=== PATIENT | female | born 1960 | race Caucasian/White ===

== ENCOUNTER 2022-03-11 10:20 | Day surgery (SDC) | payer OTHER ==
[2022-03-08 12:06] VITALS: BMI 36.6
[~2022-03-11 10:20] MED LIST: LACTATED RINGERS 1,000 ML IV SCH; LIDOCAINE 1% (10MG/ML) FOR IV START INTRADERMA PRN
[2022-03-11 10:45] VITALS: TEMP 96.7
[2022-03-11] MEDS ORDERED: LIDOCAINE 2% INJ 20 MG/ML (2 ML VIAL) ONE (11:53)
[2022-03-11] MEDS ORDERED: PROPOFOL 10 MG/ML 20 ML VIAL IV ONE (11:53)
--- NOTE | 2022-03-11 11:58 | P.GSHP ---
History of Present Illness H&P Date: 03/11/22 Chief Complaint: GERD This a 61-year-old female presents today for EGD. Patient's had issues with GERD. Past Medical History Past Medical History: GERD/Reflux, Hypertension Additional Past Medical History / Comment(s): hiatal hernia History of Any Multi-Drug Resistant Organisms: None Reported Past Surgical History: Cholecystectomy Additional Past Surgical History / Comment(s): tumor removed left kidney at age 18 Past Anesthesia/Blood Transfusion Reactions: No Reported Reaction Smoking Status: Current every day smoker - Past Family History Mother Family Medical History: Cancer Additional Family Medical History / Comment(s): uterine CA Medications and Allergies Home Medications Medication Instructions Recorded Confirmed Type Omeprazole 20 mg PO BID 03/08/22 03/08/22 History Triamterene/Hydrochlorothiazid 1 each PO DAILY 03/08/22 03/08/22 History [Triamterene-Hctz 37.5-25 mg Cp] Vitamin E (Dl,Tocopheryl Acet) 180 mg PO DAILY 03/08/22 03/08/22 History [Vitamin E (100 Iu = 45MG)] amLODIPine [Norvasc] 5 mg PO HS 03/08/22 03/08/22 History Allergies Allergy/AdvReac Type Severity Reaction Status Date / Time No Known Allergies Allergy Verified 03/08/22 11:55 Surgical - Exam Vital Signs Temp Pulse Resp BP Pulse Ox 96.7 F L 96 16 150/81 100 03/11/22 10:44 03/11/22 10:44 03/11/22 10:44 03/11/22 10:44 03/11/22 10:44 - General well developed, well nourished, no distress - Eyes PERRL - ENT normal pinna - Neck no masses - Respiratory normal expansion - Cardiovascular Rhythm: regular - Abdomen Abdomen: soft, non tender Assessment and Plan Assessment: GERD. We'll perform EGD.
--- NOTE | 2022-03-11 12:06 | P.OP ---
Date of Procedure: 03/11/22 Preoperative Diagnosis: GERD Postoperative Diagnosis: GERD Large paraesophageal hiatal hernia Esophagitis Procedure(s) Performed: EGD Anesthesia: MAC Surgeon: Vivek Oneal Pathology: other (Esophagus) Condition: stable Disposition: PACU Description of Procedure: The patient's placed on the endoscopy table in the lateral position. She received IV sedation. The gastroscope placed oropharynx passed in the esophagus stomach. Scope was placed through the pylorus. First and second portion of duodenum appeared normal. Scope summer back the stomach antrum appeared normal. Scope was then retroflexed there was a large paraesophageal hernia. The GE junction was at 36 cm. The distal esophagus. Inflamed a biopsies performed. The proximal esophagus appeared normal. Scope withdrawn for patient.
[2022-03-11 12:38] VITALS: BP 100/60; PULSE 89; RESP 16
== END 2022-03-11 13:14 | disposition home or self-care (01) ==
LOC: ORWHC2ENDO 10:20
PROVIDERS: ATTEND Surgery
DX: K21.00 Gastro-esophageal reflux disease with esophagitis, without bleeding (principal); K44.9 Diaphragmatic hernia without obstruction or gangrene; I10 Essential (primary) hypertension; F17.210 Nicotine dependence, cigarettes, uncomplicated; Z90.49 Acquired absence of other specified parts of digestive tract; Z80.49 Family history of malignant neoplasm of other genital organs; Z79.899 Other long term (current) drug therapy
CPT/HCPCS: 43239; J2704; J2001; 88305; 88312

== ENCOUNTER → 2022-03-21 | Outpatient (CLI) | payer OTHER ==
[2022-03-21 20:32] LABS: Basophils # (A) 0.03 X 10*3/uL (0.00-0.10); Basophils % (A) 0.5 %; Eosinophils # (A) 0.33 X 10*3/uL (0.04-0.35); Eosinophils % (A) 5.5 %; HCT 40.5 % (37.2-46.3); HGB 12.8 g/dL (12.0-15.0); Immature Grans, Automated 0.3 %; Lymphocytes # (A) 1.58 X 10*3/uL (0.90-5.00); Lymphocytes % (A) 26.5 %; MCH 26.8 pg (27.0-32.0); MCHC 31.6 g/dL (32.0-37.0); MCV 84.9 fL (80.0-97.0); Mean Platelet Volume 13.3 fL (9.5-12.2); Monocytes # (A) 0.45 X 10*3/uL (0.20-1.00); Monocytes % (A) 7.6 %; NRBC Per 100 WBC 0 /100 WBCS (0.0-0.0); Neutrophils # (A) 3.55 X 10*3/uL (1.80-7.70); Neutrophils % (A) 59.6 %; Platelet Count 220 X 10*3/uL (140-440); RBC 4.77 X 10*6/uL (4.10-5.20); RDW 14.5 % (11.5-14.5); WBC 5.96 X 10*3/uL (4.50-10.00)
== END | disposition home or self-care (01) ==
LOC: LABPAT 14:18
PROVIDERS: ATTEND Surgery
DX: Z01.812 Encounter for preprocedural laboratory examination (principal); K21.00 Gastro-esophageal reflux disease with esophagitis, without bleeding
CPT/HCPCS: 85025

== ENCOUNTER 2022-04-01 08:53 | Observation (INO) | payer OTHER ==
[~2022-04-01 08:53] MED LIST changes: +ACETAMINOPHEN TAB 500 MG TAB PO PRN; +HEPARIN SODIUM,PORCINE/PF 5,000 UNIT/0.5 ML SYRINGE SQ PRN; -LACTATED RINGERS 1,000 ML IV SCH; -LIDOCAINE 1% (10MG/ML) FOR IV START INTRADERMA PRN
[2022-04-01] MEDS ORDERED: ONDANSETRON 4 MG/2 ML VIAL ONE (09:26)
[2022-04-01] MEDS ORDERED: LIDOCAINE 1% (10MG/ML) FOR IV START INTRADERMA ONE (09:35)
[2022-04-01] MEDS ORDERED: LACTATED RINGERS 1,000 ML IV ONE ×3 (09:35→13:45)
[2022-04-01] MEDS ORDERED: DEXAMETHASONE SOD PHOSPHATE 4 MG/ML 1 ML VIAL IV ONE (09:45)
[2022-04-01] MEDS ORDERED: LIDOCAINE 2% INJ 20 MG/ML (2 ML VIAL) ONE (10:15)
[2022-04-01] MEDS ORDERED: GLYCOPYRROLATE 0.2 MG/ML 2 ML VIAL ONE (10:15)
[2022-04-01] MEDS ORDERED: NEOSTIGMINE 1 MG/ML 10 ML VIAL ONE (10:15)
[2022-04-01] MEDS ORDERED: PROPOFOL 10 MG/ML 20 ML VIAL IV ONE (10:15)
[2022-04-01] MEDS ORDERED: SUCCINYLCHOLINE CHLORIDE 200 MG/10 ML VIAL IV ONE (10:15)
[2022-04-01] MEDS ORDERED: MIDAZOLAM 2 MG/2 ML VIAL ONE (10:15)
[2022-04-01] MEDS ORDERED: fentaNYL (PF) 50 MCG/ML 2 ML AMP ONE (10:15)
[2022-04-01] MEDS ORDERED: ROCURONIUM 10 MG/ML (5 ML VIAL) IV ONE (10:15)
[2022-04-01] MEDS ORDERED: HYDROmorphone (PF) 1 MG/ML ONE (10:15)
[2022-04-01 10:48] LABS: Potassium 3.6 mmol/L (3.5-5.1)
[2022-04-01] MEDS ORDERED: BUPIVACAINE (PF) 0.5% 30 ML VIAL SQ ONE (10:59)
--- NOTE | 2022-04-01 12:04 | P.GSHP ---
History of Present Illness H&P Date: 04/01/22 Chief Complaint: GERD Is a 61-year-old female who has history of large paraesophageal hernia. Patient presents today for laparoscopic repair. Patient's is. History of exploratory laparotomy for kidney surgery. Patient is a midline scar. She is aware the risk of adhesions. Past Medical History Past Medical History: GERD/Reflux, Hypertension Additional Past Medical History / Comment(s): hiatal hernia History of Any Multi-Drug Resistant Organisms: None Reported Past Surgical History: Cholecystectomy Additional Past Surgical History / Comment(s): tumor removed left kidney at age 18, EGD Past Anesthesia/Blood Transfusion Reactions: No Reported Reaction Past Psychological History: No Psychological Hx Reported Smoking Status: Current every day smoker Past Alcohol Use History: None Reported Additional Past Alcohol Use History / Comment(s): started smoking age 22s, <1ppd Past Drug Use History: None Reported - Past Family History Mother Family Medical History: Cancer Additional Family Medical History / Comment(s): uterine CA Medications and Allergies Home Medications Medication Instructions Recorded Confirmed Type Omeprazole 20 mg PO BID 03/08/22 03/29/22 History Triamterene/Hydrochlorothiazid 1 each PO DAILY 03/08/22 03/29/22 History [Triamterene-Hctz 37.5-25 mg Cp] Vitamin E (Dl,Tocopheryl Acet) 180 mg PO DAILY 03/08/22 03/29/22 History [Vitamin E (100 Iu = 45MG)] amLODIPine [Norvasc] 5 mg PO HS 03/08/22 03/29/22 History Allergies Allergy/AdvReac Type Severity Reaction Status Date / Time No Known Allergies Allergy Verified 04/01/22 09:10 Surgical - Exam Vital Signs Temp Pulse Resp BP Pulse Ox 98.0 F 92 16 133/71 98 04/01/22 09:15 04/01/22 09:15 04/01/22 09:15 04/01/22 09:15 04/01/22 09:15 - General well developed, well nourished, no distress - Eyes PERRL - ENT normal pinna - Neck no masses - Respiratory normal expansion - Cardiovascular Rhythm: regular - Abdomen Well-healed midline scar Abdomen: soft, non tender Results - Labs 04/01/22 09:35 Diabetes panel 04/01/22 Range/Units 09:35 Sodium 139 (137-145) mmol/L Potassium 3.6 (3.5-5.1) mmol/L Chloride 103 (98-107) mmol/L Carbon Dioxide 25 (22-30) mmol/L Pituitary panel 04/01/22 Range/Units 09:35 Sodium 139 (137-145) mmol/L Potassium 3.6 (3.5-5.1) mmol/L Chloride 103 (98-107) mmol/L Carbon Dioxide 25 (22-30) mmol/L Adrenal panel 04/01/22 Range/Units 09:35 Sodium 139 (137-145) mmol/L Potassium 3.6 (3.5-5.1) mmol/L Chloride 103 (98-107) mmol/L Carbon Dioxide 25 (22-30) mmol/L Assessment and Plan Assessment: Large paraesophageal hernia. Patient will undergo laparoscopic repair. Patient with a risk of conversion to open procedure for adhesions.
--- NOTE | 2022-04-01 12:05 | P.OP ---
Date of Procedure: 04/01/22 Preoperative Diagnosis: Paraesophageal hernia Postoperative Diagnosis: GERD Paraesophageal hernia Adhesions Procedure(s) Performed: Laparoscopic Dione fundoplication Anesthesia: МАРИНА Surgeon: Vivek Oneal Pathology: none sent Condition: stable Disposition: PACU Description of Procedure: HThe patient was placed on the operating table in the supine position. The patient received general anesthesia. And was placed in dorsal lithotomy position. The patient was prepped and draped in the usual sterile fashion. The skin incision sites were anesthetized with 1% local Xylocaine. The skin was incised in the left periumbilical area and then using a blade less 5 mm trocar under direct visualization panel cavity was entered. After adequate insufflation the laparoscope was then placed into the peritoneal cavity. There were adhesions noted throughout the peritoneal cavity. Care was taken to avoid areas of adhesion. Next a 5 mm trochars placed in the right epigastric position. Another 5 millimeter trocar the right lateral position. Another 5 millimeter trocar in the left lateral position a 5 mm trocar is placed in the left epigastric position. And then the initial 5 mm trocar was exchanged for a 10 mm trocar. The left lateral lobe liver was retracted. The hernia was seen. The crural defect was then dissected using the Harmonic scissors device. A 360 crural dissection was performed the esophagus stomach was reduced back into the peritoneal Cavity. The crural defect was then closed using 2-0 Ethibond suture. Next the fundus of the stomach was mobilized using the [place] scissors device. and then a 58-[place] bougie dilator was placed oropharynx passed into the esophagus and stomach the fundal plication wrap was then performed by grasping the fundus posteriorly and bringing it around the esophagus and stomach fundoplication was then performed using 2-0 Ethibond suture. Care was taken that the fundal location rested over top of the intra-abdominal esophagus. There was no injury seen to the stomach or esophagus. The dilator was then withdrawn. The abdomen was irrigated there is no bleeding seen. The trochars were then withdrawn and then skin incision sites were closed using 3-0 Monocryl suture Steri-Strips are applied. Patient thought procedure well and sent to recovery room in stable condition.
[2022-04-01] MEDS ORDERED: HYDROmorphone 0.5 MG/0.5 ML SYRINGE IVP ONE ×2 (12:14→12:57)
[2022-04-01] MEDS ORDERED: HYDROmorphone 1 MG/ML 1 ML SYRINGE IVP ONE (12:57)
[2022-04-01] MEDS: D5-0.45% NACL WITH KCL 20MEQ/L 1,000 ML IV SCH ×2 (16:05→23:07)
[2022-04-01 19:33] LABS: African American GFR (CKD) >90 (>60 ml/min/1.73 sqM); Anion Gap 13 mmol/L; Blood Urea Nitrogen 20 mg/dL (7-17); Calcium 9.6 mg/dL (8.4-10.2); Carbon Dioxide 24 mmol/L (22-30); Chloride 102 mmol/L (98-107); Glucose 107 mg/dL (74-99); Non-African American GFR(CKD) 83 (>60 ml/min/1.73 sqM); Potassium 3.6 mmol/L (3.5-5.1); Sodium 139 mmol/L (137-145)
[2022-04-01] MEDS: HYDROmorphone 1 MG/ML 1 ML SYRINGE IVP PRN (19:37)
[2022-04-02] MEDS: HYDROmorphone 1 MG/ML 1 ML SYRINGE IVP PRN ×3 (00:39→09:03)
[2022-04-02] MEDS ORDERED: ENOXAPARIN 40 MG/0.4 ML SYRINGE SQ SCH (09:00)
[2022-04-02] MEDS: D5-0.45% NACL WITH KCL 20MEQ/L 1,000 ML IV SCH ×2 (09:03→12:47)
[2022-04-02 10:16] LABS: Basophils # (A) 0.01 X 10*3/uL (0.00-0.10); Basophils % (A) 0.2 %; Eosinophils # (A) 0.03 X 10*3/uL (0.04-0.35); Eosinophils % (A) 0.5 %; HCT 34.8 % (37.2-46.3); HGB 10.9 g/dL (12.0-15.0); Immature Grans, Automated 0.2 %; Lymphocytes # (A) 1.14 X 10*3/uL (0.90-5.00); Lymphocytes % (A) 20.4 %; MCH 26.4 pg (27.0-32.0); MCHC 31.3 g/dL (32.0-37.0); MCV 84.3 fL (80.0-97.0); Mean Platelet Volume 12.7 fL (9.5-12.2); Monocytes # (A) 0.41 X 10*3/uL (0.20-1.00); Monocytes % (A) 7.3 %; NRBC Per 100 WBC 0 /100 WBCS (0.0-0.0); Neutrophils # (A) 3.99 X 10*3/uL (1.80-7.70); Neutrophils % (A) 71.4 %; Platelet Count 219 X 10*3/uL (140-440); RBC 4.13 X 10*6/uL (4.10-5.20); RDW 14.5 % (11.5-14.5); WBC 5.59 X 10*3/uL (4.50-10.00)
[2022-04-02] MEDS ORDERED: HYDROcodone/APAP 5-325MG 1 EACH TAB PO PRN (12:36)
--- NOTE | 2022-04-02 12:53 | P.DS ---
Providers Date of admission: 04/02/22 03:48 Expected date of discharge: 04/02/22 Attending physician: Vivek Oneal Consults: 04/01/22 11:35 Consult Physician Routine Consulting Provider: Barbara David Consult Reason/Comments: Medical management Do you want consulting provider notified?: Yes Primary care physician: Marques Daniels [facility] Course: Discharge diagnosis 1. Paraesophageal hernia, GERD and adhesions status post laparoscopic Dione fundoplication Hospital course This is a 61-year-old female with a large paraesophageal hernia. She is status post laparoscopic Dione fundoplication. She is tolerating diet. Her pain is controlled. She is ambulating. She is afebrile. She is stable for discharge. Please refer to chart for any further details. Physician Bow Repairer Custom note has been reviewed by physician. Signing provider agrees with the documented findings, assessment, and plan of care. Patient Condition at Discharge: Stable Plan - Discharge Summary Discharge Rx Participant: No New Discharge Prescriptions: New HYDROcodone/APAP 5-325MG [[place] 5-325] 1 tab PO Q6HR PRN 3 Days #12 tab PRN Reason: Pain Continue Triamterene/Hydrochlorothiazid [Triamterene-Hctz 37.5-25 mg Cp] 1 each PO DAILY amLODIPine [Norvasc] 5 mg PO HS Vitamin E (Dl,Tocopheryl Acet) [Vitamin E (100 Iu = 45MG)] 180 mg PO DAILY Omeprazole 20 mg PO BID Discharge Medication List Omeprazole 20 mg PO BID 03/08/22 [History] Triamterene/Hydrochlorothiazid [Triamterene-Hctz 37.5-25 mg Cp] 1 each PO DAILY 03/08/22 [History] Vitamin E (Dl,Tocopheryl Acet) [Vitamin E (100 Iu = 45MG)] 180 mg PO DAILY 03/08/22 [History] amLODIPine [Norvasc] 5 mg PO HS 03/08/22 [History] HYDROcodone/APAP 5-325MG [[place] 5-325] 1 tab PO Q6HR PRN 3 Days #12 tab 04/02/22 [Rx] Follow up Appointment(s)/Referral(s): Vivek Oneal MD [STAFF PHYSICIAN] - 1 Week Activity/Diet/Wound Care/Special Instructions: No driving while taking Charlotte No lifting over 10 pounds Shower daily. No soaking or tub baths for 2 weeks Very light activity until you are reevaluated at your follow up appointment with your surgeon Continue a full liquid/soft diet for the next 2 weeks No straws or carbonated beverages Resume blood pressure medications tomorrow. Hold BP meds for systolic blood pressure less than 120. Discharge Disposition: HOME SELF-CARE
[2022-04-02 14:00] VITALS: BMI 38.3
[2022-04-02 14:06] VITALS: BP 121/73; PULSE 52; RESP 18; TEMP 97.7
--- NOTE | 2022-04-02 15:18 | P.CONS ---
History of Present Illness - Reason for Consult Consult date: 04/02/22 Medical management postop Niesen fundoplication - History of Present Illness This is a 61-year-old female admitted under surgical services for paraesophageal hernia and is being closely monitored. Patient is postoperative laparoscopic Niesen fundoplication currently tolerating diet. Patient follows with Dr. Nguyễn in the outpatient setting for past medical history of gastroesophageal reflux disease, hypertension, hiatal hernia and patient reports she uses tobacco daily and occasionally drinks although denies any other illicit drug use. Patient is seen in follow-up this morning reports to tolerating liquid diet and has been up and walking and reports minimal gas with no bowel movement as of yet. Patient is voiding with no difficulties and denies chest pain and shortness of breath. Review Of Systems: Constitutional: No fever, no chills, no night sweats. No weight change. No weakness, fatigue or lethargy. No daytime sleepiness. EENT: No headache. No blurred vision or double vision, no loss of vision. No loss of Hearing, no ringing in the ears, no dizziness. No nasal drainage or congestion. No epistaxis. No sore throat. Lungs: No shortness of breath, cough, no sputum production. No wheezing. Cardiovascular: No chest pain, no lower extremity edema. No palpitations. No paroxysmal nocturnal dyspnea. No orthopnea. No lightheadedness or dizziness. No syncopal episodes. Abdominal: Mild abdominal pain. No nausea, vomiting. No diarrhea. No constipation. No bloody or tarry stools.. No loss of appetite. Reports belching and some minimal gas Genitourinary: No dysuria, increased frequency, urgency. No urinary retention. Musculoskeletal: No myalgias. No muscle weakness, no gait dysfunction, no frequent falls. No back pain. No neck pain. Integumentary: No wounds, no lesions. No rash or pruritus. No unusual bruising. No change in hair or nails. Neurologic: No aphasia. No facial droop. No change in mentation. No head injury. No headache. No paralysis. No paresthesia. Psychiatric: No depression. No anxiety. No mood swings. Endocrine: No abnormal blood sugars. No weight change. No excessive sweating or thirst. No cold intolerance. PHYSICAL EXAMINATION: GENERAL: The patient is alert and oriented x4, Well developed, well nourished. HEENT: Pupils are round and equally reacting to light. EOMI. no scleral icterus. No conjunctival pallor. Normocephalic, atraumatic. No pharyngeal erythema. No thyromegaly. CARDIOVASCULAR: S1 and S2 muffled PULMONARY: diminished breath sounds bilaterally with no wheezing or rhonchi noted. ABDOMEN: soft. mildly tender on exam. obese. non-distended, hypoactive bowel sounds. No palpable organomegaly. MUSCULOSKELETAL: No joint swelling or deformity. EXTREMITIES: No cyanosis, clubbing, or pedal edema. NEUROLOGICAL: Gross neurological examination did not reveal any focal deficits. SKIN: No rashes. Assessment: Large paraesophageal hernia status post laparoscopic Niesen fundoplication with lysis of adhesions Obesity with a BMI of 38.4 Continued ongoing nicotine dependence History of gastroesophageal reflux disease Hypertension History of hiatal hernia GI prophylaxis DVT prophylaxis Full code Plan: Recommend to continue with current medications and management per general surgery services. Patient is postop Niesen fundoplication with lysis of adhesions and tolerating oral intake with clear liquids patient has been up and walking tolerating oral intake reports to some belching and minimal gas with no bowel movement as of yet. Vital signs are stable and patient does take medications for blood pressure although currently normotensive and recommend holding blood pressure medications today and closely monitoring at home and may resume home medications if blood pressure rises . patient with an incentive spirometer at the bedside and encouraged to use at least 10 times every hour while awake and breathing home as well. Patient encouraged to follow-up with primary care provider along with surgery as scheduled. Tobacco cessation discussed and encouraged the patient to avoid tobacco use and exposure. We will continue to follow with surgery during hospitalization. Thank you kindly for this consultation. The impression and plan of care has been dictated by Mony Calvin, nurse practitioner as directed. Dr. Ervin MD I have performed a history and examination and MDM of this patient, discussed the same with the dictator, and agree with the dictator's assessment and plan as written ,documented as a scribe. Based on total visit time, I have performed more than 50% of the visit. Any additional findings or plans will be noted. Past Medical History Past Medical History: GERD/Reflux, Hypertension Additional Past Medical History / Comment(s): hiatal hernia History of Any Multi-Drug Resistant Organisms: None Reported Past Surgical History: Cholecystectomy Additional Past Surgical History / Comment(s): tumor removed left kidney at age 18, EGD Past Anesthesia/Blood Transfusion Reactions: No Reported Reaction Past Psychological History: No Psychological Hx Reported Smoking Status: Current every day smoker Past Alcohol Use History: None Reported Additional Past Alcohol Use History / Comment(s): started smoking age 22s, <1ppd Past Drug Use History: None Reported - Past Family History Mother Family Medical History: Cancer Additional Family Medical History / Comment(s): uterine CA Medications and Allergies Home Medications Medication Instructions Recorded Confirmed Type Omeprazole 20 mg PO BID 03/08/22 03/29/22 History Triamterene/Hydrochlorothiazid 1 each PO DAILY 03/08/22 03/29/22 History [Triamterene-Hctz 37.5-25 mg Cp] Vitamin E (Dl,Tocopheryl Acet) 180 mg PO DAILY 03/08/22 03/29/22 History [Vitamin E (100 Iu = 45MG)] amLODIPine [Norvasc] 5 mg PO HS 03/08/22 03/29/22 History HYDROcodone/APAP 5-325MG [[place] 1 tab PO Q6HR PRN 3 Days #12 tab 04/02/22 Rx 5-325] Allergies Allergy/AdvReac Type Severity Reaction Status Date / Time No Known Allergies Allergy Verified 04/01/22 09:10 Physical Exam Vitals: Vital Signs Temp Pulse Pulse Resp BP Pulse Ox 04/02/22 02:00 97.8 F 68 16 104/66 95 04/01/22 19:29 98.1 F 82 16 123/80 95 04/01/22 14:18 97.8 F 78 18 144/77 97 04/01/22 13:45 78 18 143/65 98 04/01/22 13:30 77 16 140/76 99 04/01/22 13:15 76 16 136/63 97 04/01/22 13:00 75 16 134/60 98 04/01/22 12:58 77 16 134/60 98 04/01/22 12:42 72 18 146/82 98 04/01/22 12:27 74 18 140/70 98 04/01/22 12:12 71 17 139/64 100 04/01/22 11:57 70 17 138/67 100 04/01/22 11:42 97.1 F L 74 16 127/60 99 Intake and Output 04/01/22 04/02/22 04/02/22 22:59 06:59 14:59 Intake Total 1375 Balance 1375 Intake: IV 1375 D5-0.45% NaCl with KCl 1375 20Meq/l 1,000 ml @ 125 mls/hr IV .Q8H [facility] Rx#: [id number] Other: Voiding Method Toilet # Voids 1 2 Results CBC & Chem 7: 04/02/22 06:34 04/01/22 09:35 Labs: Abnormal Lab Results - Last 24 Hours (Table) 04/01/22 Range/Units 09:35 BUN 20 H (7-17) mg/dL Glucose 107 H (74-99) mg/dL
== END 2022-04-02 14:09 | disposition home or self-care (01) ==
LOC: OR 08:53 → 5NMEDONC 11:40 → OR 04-02 02:13 → 5NMEDONC 04-02 03:48
PROVIDERS: ADMIT Surgery; ATTEND Surgery
DX: K44.9 Diaphragmatic hernia without obstruction or gangrene (principal); K21.9 Gastro-esophageal reflux disease without esophagitis; K66.0 Peritoneal adhesions (postprocedural) (postinfection); I10 Essential (primary) hypertension; F17.200 Nicotine dependence, unspecified, uncomplicated; E66.9 Obesity, unspecified; Z68.38 Body mass index [BMI] 38.0-38.9, adult; Z79.899 Other long term (current) drug therapy
CPT/HCPCS: 80051; 80048; 85025; 43280; G0378; J2250; J0330; J1100; J2710; J0690; J2405; J1650; J3010; J1170 ×3; J2704; J1644; J2001

== ENCOUNTER → 2024-09-28 | Outpatient (CLI) | payer OTHER ==
--- NOTE | 2024-09-29 06:39 | FL ---
EXAMINATION TYPE: FL UGI w esophagus w KUB DATE OF EXAM: 09/28/2024 LIMITED UGI-ESOPHAGRAM: CLINICAL HISTORY: Severe dysphagia for last 2 months, feels food is getting stuck, history of hiatal hernia repair surgery 2.5 years ago. TECHNIQUE: Esophagram is performed utilizing thin liquid barium. A total of 85 seconds of fluoroscopi c time was utilized during procedure and 81 images obtained. TOTAL DAP = 2857.97. FINDINGS: Preprocedure project designer image shows cholecystectomy clips and overall nonobstructive bowel gas p attern. Moderate colonic fecal prominence. The patient swallowed contrast without difficulty or delay. Esophageal peristalsis and motility are within normal limits. There is pooling of contrast in dilated distal esophagus with delayed passage into the stomach over a short segment just above the diaphragm. The situs small surgical clips. There is no extravasation of contrast to suggest leak. A 10 minute delayed image shows progression of cont rast through the duodenal sweep into proximal jejunal loops with some retained contrast in the distal esophagus. There is tiny outpouchings or ulceration in the distal esophagus before the level of sign ificant narrowing IMPRESSION: Moderate to severe obstruction in the distal esophagus at level of diaphragmatic hiatus. Severe narrowing and Mucosal irregularity is seen. Findings could reflect products of severe inflamma tory change, neoplastic process is not entirely excluded. Further investigation with direct visualiza tion is advised. [facility], , 09/29/2024 6:36 AM
== END | disposition home or self-care (01) ==
LOC: RADFLMAIN 09:21
PROVIDERS: ATTEND Surgery
DX: K22.2 Esophageal obstruction (principal); R13.10 Dysphagia, unspecified
CPT/HCPCS: 74240

== ENCOUNTER 2024-09-30 07:45 | Day surgery (SDC) | payer OTHER ==
[2024-09-29 12:03] VITALS: BMI 37.8
[2024-09-30 08:05] VITALS: TEMP 97
[2024-09-30] MEDS: LACTATED RINGERS 1,000 ML IV SCH (08:05)
[2024-09-30] MEDS: IV FLUID CONTINUATION 1,000 ML IV ONE (08:05)
[2024-09-30] MEDS ORDERED: PROPOFOL 10 MG/ML 20 ML VIAL IV ONE (08:38)
--- NOTE | 2024-09-30 08:43 | P.GSHP ---
History of Present Illness H&P Date: 09/30/24 Chief Complaint: Dysphagia Is a 64-year-old female with complaints of dysphagia. Patient presents today for EGD. Her recent esophagram shows a possible stricture at the GE junction. Past Medical History Past Medical History: GERD/Reflux, Hypertension Additional Past Medical History / Comment(s): "When i don't eat sometimes it feels like it doesn't go down." hiatal hernia. History of Any Multi-Drug Resistant Organisms: None Reported Past Surgical History: Cholecystectomy Additional Past Surgical History / Comment(s): tumor removed left kidney at age 18, EGD. Bilat cataract surgery. Past Anesthesia/Blood Transfusion Reactions: No Reported Reaction Smoking Status: Current every day smoker - Past Family History Mother Family Medical History: Cancer Additional Family Medical History / Comment(s): uterine CA Medications and Allergies Home Medications Medication Instructions Recorded Confirmed Type Omeprazole 20 mg PO BID 03/08/22 09/30/24 History Triamterene/Hydrochlorothiazid 1 each PO QAM 03/08/22 09/30/24 History [Triamterene-Hctz 37.5-25 mg Cp] amLODIPine [Norvasc] 5 mg PO HS 03/08/22 09/30/24 History Ibuprofen (Unknown Dose) 1 dose PO DIRECTED PRN 09/29/24 09/30/24 History Varenicline [Chantix Starter Pack] 0.5 mg PO BID 09/29/24 09/30/24 History Allergies Allergy/AdvReac Type Severity Reaction Status Date / Time No Known Allergies Allergy Verified 09/30/24 08:00 Surgical - Exam Vital Signs Temp Pulse Resp BP Pulse Ox 97.0 F L 86 16 126/72 97 09/30/24 08:03 09/30/24 08:03 09/30/24 08:03 09/30/24 08:03 09/30/24 08:03 - General well developed, well nourished, no distress - Eyes PERRL - ENT normal pinna - Neck no masses - Respiratory normal expansion - Cardiovascular Rhythm: regular - Abdomen Abdomen: soft, non tender Assessment and Plan Assessment: Dysphagia, 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 Will perform EGD with balloon dilatation.
--- NOTE | 2024-09-30 09:02 | P.OP ---
Date of Procedure: 09/30/24 Preoperative Diagnosis: Dysphagia Postoperative Diagnosis: Dysphagia GE junction stricture Procedure(s) Performed: EGD with balloon dilatation Anesthesia: MAC Surgeon: Vivek Oneal Condition: stable Disposition: PACU Description of Procedure: The patient was placed on the endoscopy table in the lateral position. She received IV sedation. Caden-Marcelle,Meenu Gastroflux oropharynx comparison to the esophagus. There was some vegetable matter seen in the distal esophagus. The fluid was aspirated. The col gastric was then placed into the stomach. And then through the pylorus. There was no evidence of any gastric obstruction. The scope was retroflexed the remainder of the stomach appeared normal. It was unclear if the fundoplication wrap had been displaced downward. There appeared to be a portion of the stomach above the fundoplication just below the GE junction. The distal esophageal stricture was visualized. The balloon was held at the GE junction for 3 minutes. The 20 mm balloon was used to dilate the GE junction. The balloon was then withdrawn. There was no evidence of any injury to the mucosa. There was a retained vegetable matter in the esophagus. Some of these pieces of mesh matter were able to be suctioned out. There appeared to be pieces of onion. The scope was then withdrawn.
[2024-09-30 09:04] VITALS: RESP 18
[2024-09-30 09:19] VITALS: BP 118/76; PULSE 77
== END 2024-09-30 09:49 | disposition home or self-care (01) ==
LOC: ORWHC2ENDO 07:45
PROVIDERS: ATTEND Surgery
DX: K22.2 Esophageal obstruction (principal); I10 Essential (primary) hypertension; K21.9 Gastro-esophageal reflux disease without esophagitis; K44.9 Diaphragmatic hernia without obstruction or gangrene; F17.200 Nicotine dependence, unspecified, uncomplicated; Z79.899 Other long term (current) drug therapy
CPT/HCPCS: 43249; J2704; C1726

== ENCOUNTER → 2024-11-12 | Outpatient (CLI) | payer OTHER ==
--- NOTE | 2024-11-12 11:46 | FL ---
EXAMINATION TYPE: FL barium swallow DATE OF EXAM: 11/12/2024 COMPARISON: 09/28/2024 CLINICAL INDICATION: Female, 64 years old with history of R13.10 DYSPHAGIA, UNSPECIFIED; PHH, TECHNIQUE: A double contrast esophagram is performed utilizing air and barium. A total of 26 second s of fluoroscopic time was utilized during procedure and 15 images obtained. Total dose area product (DAP) in uGy*m?, mGy*cm? (or similar) Not provided. COMPARISON: None FINDINGS: Contrast is swallowed and passes to the distal esophagus where the esophagus appears dilate d and there is a high-grade area of obstruction. Distal esophagus is markedly narrowed somewhat irreg ular. Could be related postop stricture. Mucosal lesion not excluded. Only a small amount of contrast passes into the stomach. IMPRESSION: 1. High-grade obstruction of the distal esophagus. [facility], , 11/12/2024 11:44 AM
== END | disposition home or self-care (01) ==
LOC: RADFLMAIN 10:50
PROVIDERS: ATTEND Surgery
DX: K22.2 Esophageal obstruction (principal); R13.10 Dysphagia, unspecified
CPT/HCPCS: 74220

== ENCOUNTER → 2024-12-01 | Outpatient (CLI) | payer OTHER ==
[2024-12-01 15:12] LABS: Basophils # (A) 0.06 X 10*3/uL (0.00-0.10); Basophils % (A) 1.2 %; Eosinophils # (A) 0.29 X 10*3/uL (0.04-0.35); Eosinophils % (A) 5.9 %; HCT 41.0 % (37.2-46.3); HGB 12.7 g/dL (12.0-15.0); Immature Grans, Automated 0.20 %; Lymphocytes # (A) 1.38 X 10*3/uL (0.90-5.00); Lymphocytes % (A) 27.9 %; MCH 27.0 pg (27.0-32.0); MCHC 31.0 g/dL (32.0-37.0); MCV 87.2 FL (80.0-97.0); Monocytes # (A) 0.44 X 10*3/uL (0.20-1.00); Monocytes % (A) 8.9 %; NRBC Per 100 WBC 0 X 10*3/uL (0.00-0.01); Neutrophils # (A) 2.77 X 10*3/uL (1.80-7.70); Neutrophils % (A) 55.9 %; Platelet Count 219 X 10*3/uL (140-440); RBC 4.70 X 10*6/uL (4.10-5.20); RDW 14.9 % (11.5-14.5); WBC 4.95 X 10*3/uL (4.50-10.00)
== END | disposition home or self-care (01) ==
LOC: LABPAT 11:48
PROVIDERS: ATTEND Anesthesiology
DX: Z01.812 Encounter for preprocedural laboratory examination (principal)
CPT/HCPCS: 84132; 85025

== ENCOUNTER 2024-12-06 07:04 | Day surgery (SDC) | payer OTHER ==
[~2024-12-06 07:04] MED LIST changes: -ACETAMINOPHEN TAB 500 MG TAB PO PRN; -HEPARIN SODIUM,PORCINE/PF 5,000 UNIT/0.5 ML SYRINGE SQ PRN; +LIDOCAINE 1% (10MG/ML) FOR IV START INTRADERMA PRN; +MIDAZOLAM 2 MG/2 ML VIAL IV PRN; +fentaNYL (PF) 50 MCG/ML 2 ML AMP IVP PRN
[2024-12-06] MEDS: LACTATED RINGERS 1,000 ML IV SCH (07:48)
[2024-12-06] MEDS: IV FLUID CONTINUATION 1,000 ML IV ONE (07:50)
[2024-12-06] MEDS: HEPARIN SODIUM,PORCINE 5,000 UNIT/ML 1 ML VIAL SQ PRN (07:55)
[2024-12-06] MEDS: ACETAMINOPHEN TAB 500 MG TAB PO PRN (07:55)
[2024-12-06] MEDS: ONDANSETRON 4 MG/2 ML VIAL IVP ONE (07:56)
[2024-12-06] MEDS: DEXAMETHASONE SOD PHOSPHATE 4 MG/ML 1 ML VIAL IV ONE (07:56)
[2024-12-06] MEDS: FAMOTIDINE 20 MG/2 ML VIAL IV STA (08:07)
[2024-12-06] MEDS ORDERED: NEOSTIGMINE 1 MG/ML 10 ML VIAL ONE (09:03)
[2024-12-06] MEDS ORDERED: SUCCINYLCHOLINE CHLORIDE 200 MG/10 ML VIAL IV ONE (09:03)
[2024-12-06] MEDS ORDERED: ROCURONIUM 10 MG/ML (5 ML VIAL) IV ONE (09:03)
[2024-12-06] MEDS ORDERED: LIDOCAINE 1% INJ 10MG/ML (20 ML MDV) ONE (09:03)
[2024-12-06] MEDS ORDERED: LIDOCAINE 4% LTA KIT (4 ML) TOPICAL ONE (09:03)
[2024-12-06] MEDS ORDERED: KETOROLAC 15 MG/ML 1 ML VIAL ONE (09:03)
[2024-12-06] MEDS ORDERED: PROPOFOL 10 MG/ML 20 ML VIAL IV ONE (09:03)
[2024-12-06] MEDS ORDERED: fentaNYL (PF) 50 MCG/ML 2 ML AMP ONE (09:03)
[2024-12-06] MEDS ORDERED: GLYCOPYRROLATE 0.2 MG/ML 2 ML VIAL ONE (09:03)
[2024-12-06] MEDS ORDERED: MIDAZOLAM 2 MG/2 ML VIAL ONE (09:03)
[2024-12-06] MEDS: LIDOCAINE 1%-EPI 1:100,000 20 ML VIAL SQ ONE (09:39)
[2024-12-06] MEDS: HYDROmorphone 0.5 MG/0.5 ML SYRINGE IVP PRN (10:38)
[2024-12-06] MEDS ORDERED: ONDANSETRON 4 MG/2 ML VIAL IVP PRN (11:08)
--- NOTE | 2024-12-06 11:08 | P.OP ---
Date of Procedure: 12/06/24 Preoperative Diagnosis: Dysphagia Postoperative Diagnosis: Sle slipped fundoplication Recurrent hiatal hernia Procedure(s) Performed: Laparoscopic repair of recurrent hiatal hernia Anesthesia: МАРИНА Surgeon: Vivek Oneal Estimated Blood Loss (ml): 5 Pathology: none sent Condition: stable Disposition: PACU Operative Findings: Slipped fundoplication and recurrent bowel hernia Description of Procedure: The patient was placed on the operating table in the supine position. The patient received general anesthesia. And was placed in dorsal lithotomy position. The patient was prepped and draped in the usual sterile fashion. The skin incision sites were anesthetized with 1% local Xylocaine. The skin was incised in the left periumbilical area and then using a blade less 5 mm trocar under direct visualization panel cavity was entered. After adequate insufflation the laparoscope was then placed into the peritoneal cavity. Next a 5 mm trochars placed in the right epigastric position. Another 5 millimeter trocar the right lateral position. Another 5 millimeter trocar in the left lateral position a 5 mm trocar is placed in the left epigastric position. And then the initial 5 mm trocar was exchanged for a 10 mm trocar. The left lateral lobe liver was retracted. The hernia was seen. The fundoplication wrap appeared to be displaced from the GE junction. The fundoplication wrap was dissected and the sutures were cut. The fundoplication wrap was undone. The hiatal hernia was reduced. And then the crural dissection was performed. Once the hiatal hernia was completely reduced to the crura was repaired with 2-0 Ethibond with a 58 Burmese bougie dilator placed in the esophagus. There was no injury to the stomach or esophagus seen. The dilator was removed. The eye was irrigated. There is no bleeding seen. The trocar was withdrawn. The skin was then closed with interrupted 3-0 Monocryl suture. Dermabond dress was applied. Patient was sent to recovery in stable condition.
[2024-12-06] MEDS: HYDROmorphone 1 MG/ML 1 ML SYRINGE IVP PRN (15:06)
[2024-12-06] MEDS: METOCLOPRAMIDE 5 MG/ML 2 ML VIAL IVP SCH (15:55)
[2024-12-06] MEDS: D5-0.45% NACL WITH KCL 20MEQ/L 1,000 ML IV SCH (15:56)
[2024-12-06] MEDS: VARENICLINE 0.5 MG TAB PO SCH (22:32)
[2024-12-07 07:53] VITALS: BP 115/75; PULSE 62; RESP 17; TEMP 97.8
[2024-12-07] MEDS: PANTOPRAZOLE 40 MG/10 ML VIAL IVP SCH (09:10)
[2024-12-07] MEDS: ENOXAPARIN 40 MG/0.4 ML SYRINGE SQ SCH (09:10)
[2024-12-07 11:07] LABS: Basophils # (A) 0.02 10*3/uL (0.00-0.10); Basophils % (A) 0.5 %; Eosinophils # (A) 0.07 10*3/uL (0.04-0.35); Eosinophils % (A) 1.6 %; HCT 34.5 % (37.2-46.3); HGB 11.1 g/dL (12.0-15.0); Lymphocytes # (A) 1.21 10*3/uL (0.90-5.00); Lymphocytes % (A) 28.3 %; MCH 27.3 pg (27.0-32.0); MCHC 32.2 g/dL (32.0-37.0); MCV 85.0 fL (80.0-97.0); Monocytes # (A) 0.31 10*3/uL (0.20-1.00); Monocytes % (A) 7.3 %; Neutrophils # (A) 2.65 10*3/uL (1.80-7.70); Neutrophils % (A) 62.1 %; Platelet Count 174 10*3/uL (140-440); RBC 4.06 10*6/uL (4.10-5.20); RDW 14.8 % (11.5-14.5); WBC 4.27 10*3/uL (4.50-10.00)
[2024-12-07 11:21] LABS: ALT 57 U/L (4-34); AST 46 U/L (14-36); African American GFR (CKD) >90 (>60 ml/min/1.73 sqM); Albumin 3.3 g/dL (3.5-5.0); Albumin/Globulin Ratio 1.2; Alkaline Phosphatase 65 U/L (38-126); Anion Gap 8 mmol/L; Blood Urea Nitrogen 15 mg/dL (7-17); Calcium 9.7 mg/dL (8.4-10.2); Carbon Dioxide 24 mmol/L (22-30); Chloride 106 mmol/L (98-107); Globulin 2.7 g/dL; Glucose 92 mg/dL (74-99); Magnesium 1.8 mg/dL (1.6-2.3); Non-African American GFR(CKD) >90 (>60 ml/min/1.73 sqM); Potassium 4.2 mmol/L (3.5-5.1); Sodium 138 mmol/L (137-145); Total Protein 6.0 g/dL (6.3-8.2)
--- NOTE | 2024-12-07 12:33 | P.CONS ---
History of Present Illness - Reason for Consult Consult date: 12/07/24 Medical management, status post laparoscopic repair of hiatal hernia - History of Present Illness This is a pleasant 64-year-old female who was admitted under general surgery and is status post laparoscopic repair of a recurrent hiatal hernia, status post op day 1. Patient follows with Dr. Nguyễn in the outpatient setting with a past medical history of GERD, hypertension, previous hiatal hernia with recurring issues, seasonal allergies, continued ongoing nicotine abuse, obesity. Patient is maintained on Niesen clear diet along with D5/0. 4 5 normal saline with potassium at 125 an hour along with Protonix and subcutaneous Lovenox. No labs drawn and will obtain basic labs for further evaluation. Labs obtained show a white blood count of 4.27, hemoglobin 11.1, platelets at 174, sodium 138, potassium 4.2, BUN is 15 with a creatinine 0.69, ALT/AST mildly elevated and total bili is 0.4, magnesium is 1.8. Patient is awaiting general surgery at the bedside to see if she can go home. Patient is medically stable once cleared by general surgery. REVIEW OF SYSTEMS: CONSTITUTIONAL: No fever, no malaise, no fatigue. HEENT: No recent visual problems or hearing problems. Denied any sore throat. CARDIOVASCULAR: No chest pain, orthopnea, PND, no palpitations, no syncope. PULMONARY: No shortness of breath, no cough, no hemoptysis. GASTROINTESTINAL: No diarrhea, no nausea, no vomiting, no abdominal pain. Rep orts has had bowel movements and is passing gas and denies any abdominal pain NEUROLOGICAL: No headaches, no weakness, no numbness. HEMATOLOGICAL: Denies any bleeding or petechiae. GENITOURINARY: Denies any burning micturition, frequency, or urgency. MUSCULOSKELETAL/RHEUMATOLOGICAL: Denies any joint pain, swelling, or any muscle pain. ENDOCRINE: Denies any polyuria or polydipsia. The rest of the 14-point review of systems is negative. PHYSICAL EXAMINATION: GENERAL: The patient is alert and oriented x3, not in any acute distress. Well developed, well nourished. Obese HEENT: Pupils are round and equally reacting to light. EOMI. No scleral icterus. No conjunctival pallor. Normocephalic, atraumatic. No pharyngeal erythema. No thyromegaly. CARDIOVASCULAR: S1 and S2 present. No murmurs, rubs, or gallops. PULMONARY: Chest is clear to auscultation, no wheezing or crackles. ABDOMEN: Soft, nontender, nondistended, normoactive bowel sounds. No palpable organomegaly. MUSCULOSKELETAL: No joint swelling or deformity. EXTREMITIES: No cyanosis, clubbing, or pedal edema. NEUROLOGICAL: Gross neurological examination did not reveal any focal deficits. SKIN: No rashes. Assessment: Status post laparoscopic repair of recurrent hiatal hernia History of hiatal hernia with multiple issues History of GERD Hypertension history Seasonal allergies Continued ongoing nicotine use Obesity with a BMI of 36.6 GI prophylaxis DVT prophylaxis Full code Plan: Patient admitted under general surgery services status post recurrent hiatal hernia repair postop day 1 Patient is maintained on clear liquid diet per surgery and only to be advanced per surgery Medications reviewed and resumed as appropriate Encourage incentive spirometer use at least 10 times every hour while awake Encourage increase activity as tolerated Patient does take amlodipine as well as triamterene for blood pressure and recommend holding at this time as patient is currently on the lower side and normotensive. Monitor for any postop hypotension. Vital signs stable patient okay to resume medications at home Basic labs obtained and within normal limits other than mildly elevated ALT/AST and recommend outpatient follow-up with primary care provider for repeat labs in 1 week Thank you kindly for this consultation. We will continue to follow with general surgery during hospitalization The impression and plan of care has been dictated by Mony Calvin, Nurse Practitioner as directed. Dr. Ervin MD I have performed a history and examination and MDM of this patient, discussed the same with the dictator, and agree with the dictator's assessment and plan as written ,documented as a scribe. Based on total visit time, I have performed more than 50% of the visit. Past Medical History Past Medical History: GERD/Reflux, Hypertension Additional Past Medical History / Comment(s): hiatal hernia- recurring issues, s easonal allergies and sinus sx History of Any Multi-Drug Resistant Organisms: None Reported Past Surgical History: Cholecystectomy, Hernia Repair Additional Past Surgical History / Comment(s): tumor removed left kidney at age 18, EGD, hiatal hernia Past Anesthesia/Blood Transfusion Reactions: No Reported Reaction Past Psychological History: No Psychological Hx Reported Smoking Status: Current every day smoker Past Alcohol Use History: None Reported Additional Past Alcohol Use History / Comment(s): started smoking age 22s, couple of cigarettes a day now. Past Drug Use History: None Reported - Past Family History Mother Family Medical History: Cancer Additional Family Medical History / Comment(s): uterine CA Medications and Allergies Home Medications Medication Instructions Recorded Confirmed Type Omeprazole 20 mg PO BID 03/08/22 12/06/24 History Triamterene/Hydrochlorothiazid 1 each PO QAM 03/08/22 12/06/24 History [Triamterene-Hctz 37.5-25 mg Cp] amLODIPine [Norvasc] 5 mg PO HS 03/08/22 12/06/24 History Varenicline [Chantix Starter Pack] 0.5 mg PO BID 09/29/24 12/06/24 History Ibuprofen [Motrin Ib] 800 mg PO DIRECTED PRN 11/30/24 11/30/24 History Acetaminophen Tab [Tylenol] 650 mg PO Q6H #30 tab 12/07/24 Rx Docusate [Colace] 100 mg PO BID #20 capsule 12/07/24 Rx Ibuprofen [Motrin] 600 mg PO Q6HR PRN #40 tab 12/07/24 Rx oxyCODONE HCL [OxyIR] 5 mg PO Q6H PRN 3 Days #10 tab 12/07/24 Rx Allergies Allergy/AdvReac Type Severity Reaction Status Date / Time No Known Allergies Allergy Verified 12/06/24 07:22 Physical Exam Vitals: Vital Signs Temp Pulse Pulse Resp BP Pulse Ox 12/07/24 07:17 97.8 F 62 17 115/75 99 12/07/24 02:00 98.3 F 60 18 124/67 96 12/06/24 19:34 98.2 F 65 16 123/77 98 12/06/24 15:00 97.4 F L 72 16 118/56 99 12/06/24 13:54 68 16 128/72 100 12/06/24 12:30 55 L 16 112/67 100 12/06/24 12:15 55 L 16 130/65 100 12/06/24 12:00 67 16 115/64 100 12/06/24 11:45 58 L 16 128/69 100 12/06/24 11:30 54 L 16 132/70 100 12/06/24 11:15 56 L 16 134/67 99 12/06/24 11:00 55 L 16 139/72 98 12/06/24 10:45 67 17 138/72 98 12/06/24 10:33 96.9 F L 15 142/80 97 Intake and Output 12/06/24 12/07/24 12/07/24 22:59 06:59 14:59 Other: # Voids 2 2 Results CBC & Chem 7: 12/07/24 10:35 12/07/24 10:35
== END 2024-12-07 12:23 | disposition home or self-care (01) ==
LOC: OR 07:04 → 6NMEDSUR 14:14 → OR 12-07 12:23
PROVIDERS: ATTEND Surgery
DX: K44.9 Diaphragmatic hernia without obstruction or gangrene (principal); E66.9 Obesity, unspecified; I10 Essential (primary) hypertension; F17.210 Nicotine dependence, cigarettes, uncomplicated; Z68.36 Body mass index [BMI] 36.0-36.9, adult; Z90.49 Acquired absence of other specified parts of digestive tract; Z79.899 Other long term (current) drug therapy
CPT/HCPCS: 80053; 83735; 85025; 43281; J1644; J1100; J2765; J0690 ×2; J2405; J1650; J1171 ×2; J1308